=== PATIENT | male | born 1995 | race Caucasian/White ===

== ENCOUNTER 2018-05-02 17:27 | Emergency (ER) | payer OTHER ==
[~2018-05-02] VITALS: Ht 188 cm; Wt 98.7 kg
[2018-05-02 17:32] VITALS: TEMP 36.6; Ht 188 cm; Wt 98.7 kg
--- NOTE | 2018-05-02 18:01 | EMERGENCY ROOM VISIT NOTE ---
History Report prepared by Arnold: Bettina Prieto Under the Supervision of: Dr. Ole Quinones D.O. First contact with patient: 17:37 Chief Complaint: ALLERGIC REACTION Stated Complaint: ALLERGIC REACTION, DIFFICULTY BREATHING Nursing Triage Summary: Patient having allergic reactions the past few couple months. Patient has an appointment scheduled, but states it was "really bad" today. Mother states that his throat "almost closed." Patient unaware of what he is allergic too. History of Present Illness The patient is a 23 year old male who presents to the Emergency Room with complaints of an allergic reaction today. The patient states that today he had a rash and was having difficulty breathing. He reports that he took 3 Claritin today which helped to alleviate his symptoms. The patient reports having allergic reactions over the last 2 months. The patient reports that he was playing badminton today when his symptoms began and states that he was cutting his grass when his symptoms began in the past. The patient states that he gets these reactions when he is over-heated. He denies a history of allergies and states that he is seeing a intelligence research specialist in July as his symptoms began as a rash. The patient states that his rash looks like hives. Per family, the patient is visiting here from [place] and the patient states that he lives in [place]. He reports that he has lived there a year and a half. The patient states that he is otherwise a healthy individual. Source of History: patient, family Onset: today Position: other (generalized) Quality: other (allergic reaction ) Modifying Factors (Worsening): other (over-heated) Modifying Factors (Relieving): other (claritin) Associated Symptoms: + SOB, + rash Review of Systems See HPI for pertinent positives & negatives. A total of 10 systems reviewed and were otherwise negative. Past Medical & Surgical Medical Problems: (1) No active medical problems Family History Diabetes mellitus Heart disease Social History Smoking Status: Never Smoker Occupation Status: employed Physical Exam Vital Signs Date Time Temp Pulse Resp B/P (MAP) Pulse Ox O2 Delivery O2 Flow Rate FiO2 05/02/18 17:41 82 18 158/99 99 Room Air 05/02/18 17:32 36.6 93 18 124/88 98 Room Air 05/02/18 17:32 99 Room Air Physical Exam CONSTITUTIONAL/VITAL SIGNS: Reviewed / noted above. GENERAL: Non-toxic in appearance. INTEGUMENTARY: Warm, dry, and Clarita. HEAD: Normocephalic. EYES: without scleral icterus or trauma. ENT/OROPHARYNX: clear and moist. LYMPHADENOPATHY/NECK: Is supple without lymphadenopathy or meningismus. RESPIRATORY: Lungs clear and equal. CARDIOVASCULAR: Regular rate and rhythm. GI/ABDOMEN: Soft and nontender. No organomegaly or pulsatile mass. No rebound or guarding. Normal bowel sounds. EXTREMITIES: Warm and well perfused. BACK: No CVA tenderness. NEUROLOGICAL: Intact without focal deficits. PSYCHIATRIC: normal affect. MUSCULOSKELETAL: Normally developed with good muscle tone. Medical Decision & Procedures Medications Administered Medications (Trade) Dose Ordered Sig/Edda Route Start Time Stop Time Status Last Admin Dose Admin Prednisone (PredniSONE TAB) 20 mg NOW STAT PO 05/02/18 17:50 05/02/18 17:51 DC 05/02/18 17:58 20 MG ED Course 1744: Previous medical records were reviewed. The patient was evaluated in room B2. A complete history and physical examination was performed. 1749: Ordered Prednisone 20 mg PO. 1809: The patient verbalized agreement of the treatment plan. He was discharged home. Medical Decision Differential diagnosis: Etiologies such as allergic reaction, anaphylaxis, urticaria, Gill-Scar syndrome, toxic epidermal necrolysis, erythema multiforme, cellulitis, as well as others were entertained. This is a 23-year-old male who presents to the ED with a chief complaint of allergic reaction. He is unsure of what he was allergic to. He has had 3 episodes in the past 2 months. Twice, he was in [place] mowing his lawn. Today he was playing badGordianTecton in the yard and he developed hives on his skin. He felt like his throat was swelling. He took 3 Claritin and decided to come in for evaluation. By the time he got here, his symptoms have resolved. His vital signs here are normal. His physical exam was normal. He is no evidence of airway swelling. His hives that were primarily on his upper and lower extremities have completely resolved. The patient after exam was felt to be stable for discharge. He was given a prescription for prednisone and a dose here. He is going to follow-up with an life enrichment director back home in [place]. Medication Reconcilliation Current Medication List: was personally reviewed by me Blood Pressure Screening Patient's blood pressure: Normal blood pressure Impression Primary Impression: Urticaria Scribe Attestation The scribe's documentation has been prepared under my direction and personally reviewed by me in its entirety. I confirm that the note above accurately reflects all work, treatment, procedures, and medical decision making performed by me. Departure Information Dispostion Home / Self-Care Prescriptions Prednisone (Prednisone) 20 Mg Tab 1 TAB PO DAILY for 4 Days, #4 TAB Prov: Ole Quinones D.O. 05/02/18 Referrals No Doctor, Assigned (PCP) Forms HOME CARE DOCUMENTATION FORM, IMPORTANT VISIT INFORMATION Patient Instructions My [facility] Additional Instructions Take Claritin daily for the next 4-5 days. Prednisone as prescribed once a day for the next 4 days. Follow-up with an life enrichment director back home.
[2018-05-02] MEDS ORDERED: PRED20TA PO (18:07)
[2018-05-02 19:10] VITALS: BP 136/80; PULSE 71; O2SAT 98
== END 2018-05-02 19:15 | disposition home or self-care (01) ==
LOC: C.EDB 17:29
DX: T78.40XA Allergy, unspecified, initial encounter (principal); L50.9 Urticaria, unspecified; R06.00 Dyspnea, unspecified; X58.XXXA Exposure to other specified factors, initial encounter